=== PATIENT | female | born 1950 | race Caucasian/White ===

== ENCOUNTER 2020-07-20 08:37 | Outpatient (REF) | payer MEDICARE, SELFPAY ==
--- NOTE | ~2020-07-20 | MM_ITS ---
EXAMINATION: MM SCREENING DIGITAL BREAST TOMOSYNTHESIS, BILATERAL CLINICAL INFORMATION: Screening. Asymptomatic. The lifetime risk of breast cancer based on the Tyrer-Cuzick Model is 3%. COMPARISON: Mammography: 07/15/2019, 07/09/2018, 07/03/2017 TECHNIQUE: Digital breast tomosynthesis is performed in both the craniocaudal and mediolateral oblique views along with computer-aided detection (CAD). Synthesized 2D images are generated from the tomosynthesis. Additional left MLO view is provided. FINDINGS: The breasts are almost entirely fatty (ACR BI-RADS breast composition Category a). There are no significant masses, abnormal calcifications, or other abnormalities. Background stromal densities are stable. The axilla and skin contours are unremarkable. No significant changes. MM/MM tomosynthesis screening BI IMPRESSION: No mammographic evidence of malignancy. ASSESSMENT: BI-RADS 1: Negative RECOMMENDATION: Routine annual mammography screening. This patient's information was entered into a reminder system with a target due date for their next mammogram.
== END 2020-07-20 08:38 | disposition home or self-care (01) ==
LOC: HO.MAMMO 08:37
PROVIDERS: PCP Internal Medicine; Visit Provider Internal Medicine
DX: Z12.31 Encounter for screening mammogram for malignant neoplasm of breast (principal)
CPT/HCPCS: 77063; 77067

== ENCOUNTER 2020-12-29 08:48 | Outpatient (REF) | payer MEDICARE, SELFPAY ==
[2020-12-29 10:25] LABS: MANUAL DIFF FLAG NO
[2020-12-29 10:28] LABS: Basophils Absolute Auto 0.1 X10*3/uL (0.0-0.2); Eosinophils Absolute Auto 0.1 X10*3/uL (0.0-0.4); Eosinophils Percent Auto 1.6 % (0-4); Hematocrit 36.3 % (37-47); Hemoglobin 11.5 g/dl (12.0-16.0); Imm Gran Abs Auto 0.01 X10*3/uL (0.00-0.03); Imm Gran Pct Auto 0.2 % (0.0-0.4); Lymphocytes Absolute Auto 1.7 X10*3/uL (1.2-4.9); Lymphocytes Percent Auto 33.7 % (20-40); Mean Corpuscular HGB Conc 31.7 g/dl (31.0-35.0); Mean Corpuscular Hemoglobin 28.3 pg (27.0-33.0); Mean Corpuscular Volume 89.4 fL (80-98); Mean Platelet Volume 12.3 fL (9.4-12.3); Monocytes Absolute Auto 0.4 X10*3/uL (0.1-1.2); Monocytes Percent Auto 8.1 % (2-11); Neutrophils Absolute Auto 2.8 X10*3/uL (2.0-8.3); Neutrophils Percent Auto 55.4 % (45-73); Platelet Count 201 X10*3/uL (160-400); Red Blood Count 4.06 X10*6/uL (4.20-5.50); White Blood Count 5.1 X10*3/uL (4.8-10.8)
[2020-12-29 11:31] LABS: Alanine Aminotransferase 44 U/L (0-31); Albumin Level 3.9 g/dL (3.5-5.0); Alkaline Phosphatase 115 U/L (39-117); Anion Gap 10 (12-20); Aspartate Amino Transferase 33 U/L (5-31); Bilirubin Total 0.6 mg/dL (0.0-1.0); Blood Urea Nitrogen 15 mg/dL (9-16); Carbon Dioxide 25 mmol/L (22-29); Chloride 110 mmol/L (96-108); Cholesterol 116 mg/dL; Estimated Glomerular Filt Rate > 60; Glucose Fasting 87 mg/dL (60-99); HDL Cholesterol 29 mg/dL; LDL Cholesterol Calculated 71 mg/dl; Potassium 4.3 mmol/L (3.3-5.1); Sodium 141 mmol/L (135-145); Triglycerides 84 mg/dL
[2020-12-29 11:52] LABS: Vitamin B12 839 pg/mL (200-900)
[2020-12-29 11:54] LABS: Thyroid Stimulating Hormone 3.69 uIU/mL (0.32-4.0)
== END 2020-12-29 08:49 | disposition home or self-care (01) ==
LOC: HO.WFDLDS 08:48
PROVIDERS: PCP Internal Medicine; Visit Provider Internal Medicine
DX: Z00.00 Encounter for general adult medical examination without abnormal findings (principal); E03.9 Hypothyroidism, unspecified; E78.5 Hyperlipidemia, unspecified; E11.9 Type 2 diabetes mellitus without complications
CPT/HCPCS: 36415; 80053; 80061; 82607; 82746; 84443; 85025

== ENCOUNTER 2021-02-04 10:39 | Outpatient (REF) | payer MEDICARE, SELFPAY ==
[2021-02-04 11:52] LABS: Cholesterol 120 mg/dL; HDL Cholesterol 28 mg/dL; LDL Cholesterol Calculated 66 mg/dl; Triglycerides 134 mg/dL
[2021-02-04 12:07] LABS: Thyroid Stimulating Hormone 2.63 uIU/mL (0.32-4.0)
== END 2021-02-04 10:40 | disposition home or self-care (01) ==
LOC: HO.LAB 10:39
PROVIDERS: PCP Internal Medicine; Visit Provider Internal Medicine
DX: E03.9 Hypothyroidism, unspecified (principal); E11.9 Type 2 diabetes mellitus without complications
CPT/HCPCS: 36415; 80061; 84443

== ENCOUNTER 2021-05-17 10:24 | Outpatient (REF) | payer MEDICARE, SELFPAY ==
[2021-05-17 13:39] LABS: Binax Internal Control QC Valid; Binax Now Covid-19 Ag Negative (Negative)
== END 2021-05-17 10:25 | disposition home or self-care (01) ==
LOC: HO.LAB 10:24
PROVIDERS: Visit Provider Internal Medicine
DX: Z20.822 Contact with and (suspected) exposure to COVID-19 (principal)
CPT/HCPCS: C9803

== ENCOUNTER 2021-07-26 07:40 | Outpatient (REF) | payer MEDICARE, SELFPAY ==
--- NOTE | ~2021-07-26 | MM_ITS ---
EXAMINATION: MM SCREENING DIGITAL BREAST TOMOSYNTHESIS, BILATERAL CLINICAL INFORMATION: Screening. Asymptomatic. The lifetime risk of breast cancer based on the Tyrer-Cuzick Model is 1.7%. COMPARISON: Mammography: July 20, 2020 and studies dating back to May 04, 2014 TECHNIQUE: Digital breast tomosynthesis is performed in both the craniocaudal and mediolateral oblique views along with computer-aided detection (CAD). Synthesized 2D images are generated from the tomosynthesis. FINDINGS: There are scattered areas of fibroglandular density (ACR BI-RADS breast composition Category b). There are no significant masses, abnormal calcifications, or other abnormalities. MM/MM tomosynthesis screening BI IMPRESSION: There are no significant changes from prior study. ASSESSMENT: BI-RADS 1: Negative RECOMMENDATION: Routine annual mammography screening. This patient's information was entered into a reminder system with a target due date for their next mammogram.
== END 2021-07-26 07:41 | disposition home or self-care (01) ==
LOC: HO.MAMMO 07:40
PROVIDERS: Visit Provider Internal Medicine
DX: Z12.31 Encounter for screening mammogram for malignant neoplasm of breast (principal)
CPT/HCPCS: 77063; 77067

== ENCOUNTER 2022-01-23 08:34 | Outpatient (REF) | payer MEDICARE, SELFPAY ==
[2022-01-23 11:11] LABS: MANUAL DIFF FLAG NO
[2022-01-23 11:42] LABS: Basophils Absolute Auto 0.1 X10*3/uL (0.0-0.2); Basophils Percent Auto 0.8 % (0-2); Eosinophils Absolute Auto 0.1 X10*3/uL (0.0-0.4); Eosinophils Percent Auto 1.8 % (0-4); Hemoglobin 11.4 g/dl (12.0-16.0); Imm Gran Abs Auto 0.02 X10*3/uL (0.00-0.03); Imm Gran Pct Auto 0.3 % (0.0-0.4); Lymphocytes Absolute Auto 2.1 X10*3/uL (1.2-4.9); Lymphocytes Percent Auto 35.1 % (20-40); Mean Corpuscular HGB Conc 31.7 g/dl (31.0-35.0); Mean Corpuscular Hemoglobin 28.1 pg (27.0-33.0); Mean Corpuscular Volume 88.7 fL (80.0-98.0); Mean Platelet Volume 11.2 fL (9.4-12.3); Monocytes Absolute Auto 0.4 X10*3/uL (0.1-1.2); Monocytes Percent Auto 7.4 % (2-11); Neutrophils Absolute Auto 3.3 x10*3/uL (2.0-8.3); Neutrophils Percent Auto 54.6 % (45-73); Platelet Count 243 X10*3/uL (160-400); Red Blood Count 4.06 X10*6/uL (4.20-5.50); Red Cell Distribution Width 14.2 % (11.0-16.0)
[2022-01-23 11:56] LABS: Alanine Aminotransferase 41 U/L (0-31); Alkaline Phosphatase 129 U/L (39-117); Anion Gap 12 (12-20); Aspartate Amino Transferase 29 U/L (5-31); Bilirubin Total 0.5 mg/dL (0.0-1.0); Blood Urea Nitrogen 16 mg/dL (9-16); Calcium 8.1 mg/dL (8.4-10.2); Carbon Dioxide 24 mmol/L (22-29); Chloride 109 mmol/L (96-108); Cholesterol 135 mg/dL; Estimated Glomerular Filt Rate > 60; Glucose Fasting 86 mg/dL (60-99); HDL Cholesterol 37 mg/dL; LDL Cholesterol Calculated 83 mg/dl; Potassium 4.1 mmol/L (3.3-5.1); Sodium 141 mmol/L (135-145); Total Protein 6.2 g/dL (6.5-8.0); Triglycerides 77 mg/dL
[2022-01-23 12:03] LABS: Thyroid Stimulating Hormone 2.19 uIU/mL (0.32-4.0)
== END 2022-01-23 08:35 | disposition home or self-care (01) ==
LOC: HO.WFDLDS 08:34
PROVIDERS: Visit Provider Internal Medicine
DX: Z13.0 Encounter for screening for diseases of the blood and blood-forming organs and certain disorders involving the immune mechanism (principal); E03.9 Hypothyroidism, unspecified; E78.5 Hyperlipidemia, unspecified; I10 Essential (primary) hypertension
CPT/HCPCS: 36415; 80053; 80061; 84443; 85025

== ENCOUNTER 2022-07-13 09:27 | Outpatient (REF) | payer MEDICARE, SELFPAY ==
[2022-07-13 11:43] LABS: MANUAL DIFF FLAG NO
[2022-07-13 11:59] LABS: Basophils Absolute Auto 0.1 X10*3/uL (0.0-0.2); Basophils Percent Auto 0.8 % (0-2); Eosinophils Absolute Auto 0.1 X10*3/uL (0.0-0.4); Eosinophils Percent Auto 1.5 % (0-4); Hematocrit 37.5 % (37.0-47.0); Hemoglobin 11.8 g/dl (12.0-16.0); Imm Gran Abs Auto 0.02 X10*3/uL (0.00-0.03); Imm Gran Pct Auto 0.3 % (0.0-0.4); Lymphocytes Absolute Auto 1.9 X10*3/uL (1.2-4.9); Lymphocytes Percent Auto 31.1 % (20-40); Mean Corpuscular HGB Conc 31.5 g/dl (31.0-35.0); Mean Corpuscular Hemoglobin 28.5 pg (27.0-33.0); Mean Corpuscular Volume 90.6 fL (80.0-98.0); Mean Platelet Volume 12.3 fL (9.4-12.3); Monocytes Absolute Auto 0.4 X10*3/uL (0.1-1.2); Monocytes Percent Auto 6.9 % (2-11); Neutrophils Absolute Auto 3.6 x10*3/uL (2.0-8.3); Neutrophils Percent Auto 59.4 % (45-73); Platelet Count 192 X10*3/uL (160-400); Red Blood Count 4.14 X10*6/uL (4.20-5.50); Red Cell Distribution Width 13.6 % (11.0-16.0); White Blood Count 6.1 X10*3/uL (4.8-10.8)
[2022-07-13 16:05] LABS: Alanine Aminotransferase 38 U/L (0-31); Alkaline Phosphatase 107 U/L (39-117); Anion Gap 14 (12-20); Aspartate Amino Transferase 33 U/L (5-31); Bilirubin Total 0.8 mg/dL (0.0-1.0); Blood Urea Nitrogen 15 mg/dL (9-16); Calcium 8.1 mg/dL (8.4-10.2); Carbon Dioxide 22 mmol/L (22-29); Chloride 109 mmol/L (96-108); Cholesterol 156 mg/dL; Estimated Glomerular Filt Rate > 60; Glucose Fasting 83 mg/dL (60-99); HDL Cholesterol 31 mg/dL; LDL Cholesterol Calculated 96 mg/dl; Potassium 4.4 mmol/L (3.3-5.1); Sodium 141 mmol/L (135-145); Triglycerides 149 mg/dL
== END 2022-07-13 09:28 | disposition home or self-care (01) ==
LOC: HO.WFDLDS 09:27
PROVIDERS: Visit Provider Internal Medicine
DX: Z00.00 Encounter for general adult medical examination without abnormal findings (principal); Z13.0 Encounter for screening for diseases of the blood and blood-forming organs and certain disorders involving the immune mechanism
CPT/HCPCS: 36415; 80053; 80061; 84443; 85025

== ENCOUNTER 2022-07-31 08:14 | Outpatient (REF) | payer MEDICARE, SELFPAY ==
--- NOTE | ~2022-07-31 | MM_ITS ---
EXAMINATION: MM SCREENING DIGITAL BREAST TOMOSYNTHESIS, BILATERAL CLINICAL INFORMATION: Screening. Asymptomatic. The lifetime risk of breast cancer based on the Tyrer-Cuzick Model is 2%. COMPARISON: Mammography: 07/26/2021, 07/20/2020, 07/15/2019 TECHNIQUE: Digital breast tomosynthesis is performed in both the craniocaudal and mediolateral oblique views along with computer-aided detection (CAD). Synthesized 2D images are generated from the tomosynthesis. FINDINGS: There are scattered areas of fibroglandular density (ACR BI-RADS breast composition Category b). Breast tissue composition borders on predominantly fatty. Background stromal and fibroglandular densities are stable. No architectural abnormality or developing density. There are no significant masses, abnormal calcifications, or other abnormalities. MM/MM tomosynthesis screening BI IMPRESSION: No mammographic evidence of malignancy. ASSESSMENT: BI-RADS 1: Negative RECOMMENDATION: Routine annual mammography screening. This patient's information was entered into a reminder system with a target due date for their next mammogram.
== END 2022-07-31 08:15 | disposition home or self-care (01) ==
LOC: HO.MAMMO 08:14
PROVIDERS: Visit Provider Internal Medicine
DX: Z12.31 Encounter for screening mammogram for malignant neoplasm of breast (principal)
CPT/HCPCS: 77063; 77067

== ENCOUNTER 2022-12-21 12:36 | Outpatient (AMB) | payer MEDICARE, SELFPAY ==
--- NOTE | 2022-12-21 13:03 | MHC.OFFVIS ---
Intake Intake Visit Reasons: Frequency of micturition Intake Note: New Patient presents for initial visit urinary frequency Urology Medications: none Blood Thinner: none PVR: Sole Dyer Required: No Accompanied by: Self / Same As Patient Allergies No Known Allergies [No Known Allergies*] Allergy (Verified 12/21/22 13:52) Medication List - Last Reconciled 12/21/22 by MONICA King atorvastatin 20 mg PO DAILY cyanocobalamin (vitamin B-12) 1,000 mcg PO DAILY estradiol 0.01%(0.1mg/gram) vaginally 3 times a week; pea sized amount to urethra 3 times a week 30 days ferrous sulfate (Feosol) 325 mg PO DAILY mv,Ca,min-folic acid-vit K1 400-20 mcg (One-A-Day Women's 50 Plus) 1 tab PO DAILY HPI HPI Comments History of Present Illness Details Erum is a very pleasant 72-year-old female patient of Dr. Reddy. She presents to the office today as a new patient for urinary urgency. She discusses over the last couple of months she has undergone multiple procedures for root canals as well as teeth pulling. She also discusses her recent urine fraction. However, during this time she started experiencing on sensed urinary incontinence as well as paresthesia to her vaginal area. She discusses following up with her PCP at which time recommendations were made for Urology referral. She reports having finished antibiotic therapy for question of a urinary tract infection and feels symptoms have since improved. So much so that she was tempted to cancel today's appointment. However, she does still report to feeling off . She reports she continues with a tingling sensation to her urethra/vaginal area. She also reports feeling a sense of urgency with urination however she currently denies urinary frequency, incontinence, nocturia, hematuria, dysuria, foul smelling urine, changes to urinary stream, flank pain, fever, and or chills. In office urinalysis results reviewed with the patient today. PVR 36 mL. Patient reports many years ago having had a bladder suspension. She also reports to have been on Detrol many years ago however stopped after prison and did not feel like she needed this medication anymore. She otherwise offers no issues or concerns at this time. [facility] Medical History Hyperlipidemia Surgical History History of bladder surgery History of colonoscopy History of rectal surgery Family History Father Lung cancer Mother Dementia Social History Housing: House Alcohol intake: current Alcohol intake frequency: holidays/special occasions only Patient Tobacco Use Status: Never used Tobacco e-Cigarette/Vaping Use: Never Used Second Hand Smoke Exposure: No service: No Current occupational status: retired Current occupational exposures/hazards: No Cognitive needs: No Hearing needs: Yes Vision needs: Yes Review of Systems Const Reports no additional complaints Eyes Reports no additional complaints ENT Reports no additional complaints Card Reports as per HPI Resp Reports no additional complaints GI Reports no additional complaints Reports as per HPI Musc Reports no additional complaints Neuro Reports no additional complaints Psych Reports no additional complaints Endo Reports no additional complaints Ede/Lymph Reports no additional complaints Aller/Immun Reports no additional complaints Physical Exam Const General: cooperative, healthy appearing, comfortable, no acute distress, well developed, alert and awake Orientation/consciousness: patient oriented x3 Limitations: no limitations HEENT Head: Yes normal to inspection, Yes normocephalic and Yes atraumatic Ears: hearing grossly normal bilaterally Eyes General: appearance normal, both eyes and all related structures Neck Neck: Yes normal visual inspection and Yes trachea midline Chest Chest palpation & inspection: normal inspection of the chest Resp Effort & Inspection: normal respiratory effort and able to speak in complete sentences Cardio Rate: regular rate GI Inspection: Yes normal to inspection General: Yes no CVA tenderness Back/Spine/Pelvis Back: no CVA tenderness Skin General skin exam: no rashes or lesions noted Neuro General: patient oriented x3 Extrem General: Yes normal to inspection Psych Appearance: grossly normal and well kempt Mental Status: mental status grossly normal Speech and movement: Normal speech and movement present and Clear speech present Affect: normal affect Attitude: cooperative Thought process: Normal thought process present Thought content: Normal thought content present Insight: Good insight present (Psych) Judgement: Good judgement present (Psych) Office Procedures Post Void Residual Post Residual Void Post Void Residual (PVR): [id number] Void Residual by ultrasound Results AMB Urinalysis, Automated UA Leukoctes 0 Courtney/uL Last Edit by Pam Giron on 12/21/22 13:20 UA Nitrite Last Edit by Brittmore Groupallyson on 12/21/22 13:20 UA Urobilinogen 0.2 mg/dL Last Edit by Radhae Bree on 12/21/22 13:20 UA Protein 0 mg/dL Last Edit by Radhae Bree on 12/21/22 13:20 UA pH 6.0 Last Edit by Avot Mediayce Bree on 12/21/22 13:20 UA Blood 0 Steve/uL Last Edit by City[employer]son on 12/21/22 13:20 UA Specific [place] 1.015 Last Edit by Brittmore [employer] on 12/21/22 13:20 UA Ketone Negative Last Edit by CityH[employer]essa Flator[employer]son on 12/21/22 13:20 UA Bilirubin 0 mg/dL Last Edit by Avot [employer]iayasmin Flatoraallyson on 12/21/22 13:20 UA Glucose 0 mg/dL Last Edit by [employer] Flatora[employer]son on 12/21/22 13:20 Results Reviewed Results Reviewed: Laboratory Last Values Urine pH (Auto) 6.0 12/21/22 13:05 Specific [place] (Auto) 1.015 12/21/22 13:05 Urine Protein (Auto) 0 mg/dL 12/21/22 13:05 Glucose (UA)(Auto) 0 mg/dL 12/21/22 13:05 Urine Ketones (Auto) Negative 12/21/22 13:05 Urine Blood (Auto) 0 Steve/uL 12/21/22 13:05 Urine Bilirubin (Auto) 0 mg/dL 12/21/22 13:05 Urine Urobilinogen (Auto) 0.2 mg/dL 12/21/22 13:05 Leukocyte Esterase (Auto) 0 Courtney/uL 12/21/22 13:05 Assessment & Plan Assessment & Plan (1) Urinary urgency: Code(s): R39.15 - Urgency of urination Plan In office urinalysis results reviewed with the patient today; as noted above. Discussed obtaining retroperitoneal ultrasound for further assessment evaluation. Discussed bladder triggers/irritants. Discussed toilet training and pelvic floor exercises/therapy at length. Discussed, educated, and encouraged on the importance of drinking plenty of fluid daily. Discussed near future in office cystoscopy if symptoms persist and/or worsen. Start Estrace cream as discussed and prescribed. Follow-up in 6-8 weeks with imaging to be completed prior; or sooner with any issues, concerns, and or questions. Orders: Orders US retroperitoneal comp Today R39.15 - Urgency of urination Urine Culture Today R39.15 - Urgency of urination AMB Urinalysis Automated Today Z13.9 - Encounter for screening, unspecified AMB Post Void Residual by ultrasound Today Z13.9 - Encounter for screening, unspecified Medications: New estradiol 0.01%(0.1mg/gram) vaginally 3 times a week; pea sized amount to urethra 3 times a week 30 days 42.5 grams 3RF Patient Instructions: The patient had an opportunity to ask questions regarding the treatment plan. All questions were answered. Physical exam, labs, and imaging were discussed and reviewed in detail. As well as risks, benefits, and discussion of treatment choices. No major barriers to understanding were identified. The patient expressed understanding and agreement with the above treatment plan. The patient was made aware they should contact our office by phone for worsening of their current condition, the appearance of new symptoms, or with any questions or concerns. Compliance is encouraged with any medications and follow up testing that is ordered. It is a privilege to be allowed the opportunity to participate in? your urological care.? Again, if you have any questions or concerns If you have any questions or concerns please do not hesitate to contact me. The office is [phone]. This note is constructed using voice recognition software. While every effort has been made to ensure accuracy solar project coordination specialist errors may have been included. Yours sincerely, MONICA King Coding Level of Care Code New Pt Level 4 (40285) Diagnoses Urinary urgency R39.15 CPT Codes Post Residual Void - PVR CPT Code: 06027-Sfog Void Residual by ultrasound ([id number])
== END 2022-12-21 13:45 | disposition home or self-care (01) ==
PROVIDERS: PCP Internal Medicine; Visit Provider Nurse Practitioner Family
DX: Z13.9 Encounter for screening, unspecified (principal); R39.15 Urgency of urination
CPT/HCPCS: 99204

== ENCOUNTER 2022-12-21 12:36 | Outpatient (REF) | payer MEDICARE, SELFPAY | END 2022-12-21 12:37 | disposition home or self-care (01) | LOC: HO.LNP 12:36 | PROVIDERS: PCP Internal Medicine; Visit Provider Nurse Practitioner Family | DX: R39.15 Urgency of urination (principal) | CPT/HCPCS: 51798; 81003; 87086; 99202 ==

== ENCOUNTER 2023-01-10 08:33 | Outpatient (REF) | payer MEDICARE, SELFPAY ==
[2023-01-10 12:31] LABS: Cholesterol 112 mg/dL (<200); HDL Cholesterol 28 mg/dL (>40); Iron 65 mcg/dL (30-160); LDL Cholesterol Calculated 54 mg/dL (<100); Percent Iron Saturation 26 % (15-50); Total Iron Binding Capacity 253 mcg/dL (228-428); Triglycerides 151 mg/dL (<150); Unsaturated Iron Binding 188 ug/dL
== END 2023-01-10 08:34 | disposition home or self-care (01) ==
LOC: HO.WFDLDS 08:33
PROVIDERS: Visit Provider Internal Medicine
DX: E78.5 Hyperlipidemia, unspecified (principal); E61.1 Iron deficiency
CPT/HCPCS: 36415; 80061; 83540

== ENCOUNTER 2023-01-12 10:18 | Outpatient (REF) | payer MEDICARE, SELFPAY ==
--- NOTE | ~2023-01-12 | US_ITS ---
EXAMINATION: US RETROPERITONEAL COMPLETE (RENAL) CLINICAL INFORMATION: Urgency of urination. COMPARISON: None available. TECHNIQUE: Real-time imaging of the kidneys and bladder. FINDINGS: RIGHT KIDNEY: 6.0 x 3.0 x 4.1 cm (SAG x AP x TRV). The kidney is normal in size, contour, and echogenicity. Renal cortical thickness is normal. No calculi or focal parenchymal lesions. There is pelviectasis, without priscila hydronephrosis. LEFT KIDNEY: 9.6 x 4.0 x 4.5 cm (SAG x AP x TRV). The kidney is normal in size, contour, and echogenicity. Renal cortical thickness is normal. No calculi or focal parenchymal lesions. No hydronephrosis. BLADDER: Well distended and normal. Bilateral ureteral jets are demonstrated. Prevoid bladder volume is 248 mL. Postvoid bladder volume is 48 mL. US/US retroperitoneal comp IMPRESSION: Unremarkable examination.
== END 2023-01-12 10:19 | disposition home or self-care (01) ==
LOC: HO.US 10:18
PROVIDERS: PCP Internal Medicine; Visit Provider Nurse Practitioner Family
DX: R39.15 Urgency of urination (principal)
CPT/HCPCS: 76770

== ENCOUNTER 2023-01-15 09:11 | Outpatient (AMB) | payer MEDICARE, SELFPAY ==
[2023-01-15 09:16] VITALS: BP 122/54; PULSE 55; BMI 24.5
--- NOTE | 2023-01-15 09:16 | MHC.PC.OV ---
Vital Signs 01/15/23 09:16 Height 5 ft 2.5 in Weight 136 lb 6 oz BMI 24.5 BP 122/54 L Blood Pressure Location Lt brachial Position Sitting Pulse 55 Pulse Source Pulse Oximeter Oxygen Delivery Method Room Air Intake Visit Reasons: 6 month f/u Allergies No Known Allergies [No Known Allergies*] Allergy (Verified 01/15/23 09:17) Medication List - Last Reconciled 01/15/23 by Jose Rafael Reddy MD atorvastatin 20 mg PO DAILY cyanocobalamin (vitamin B-12) 1,000 mcg PO DAILY estradiol 0.01%(0.1mg/gram) vaginally 3 times a week; pea sized amount to urethra 3 times a week 30 days ferrous sulfate (Feosol) 325 mg PO DAILY mv,Ca,min-folic acid-vit K1 400-20 mcg (One-A-Day Women's 50 Plus) 1 tab PO DAILY Tobacco use date assessed: 07/25/22 Fall risk assessment: No Falls in past year Last assessed Fall Risk: 01/15/23 Dental Screening Dental Screen Date: 01/15/23 Did you have a dental visit in the last 12 months?: Yes Did you have a dental problem in the last 6 months where you did not have access to dental care?: No Was dental information given to patient?: Patient has dentist HPI 6 month f/u HPI Details hyperlipidemia on rx; doing well PFSH Medical History Hyperlipidemia Surgical History History of rectal surgery History of bladder surgery History of colonoscopy Family History Father Lung cancer Mother Dementia Social History Housing: House Alcohol intake: current Alcohol intake frequency: holidays/special occasions only Patient Tobacco Use Status: Never used Tobacco e-Cigarette/Vaping Use: Never Used Second Hand Smoke Exposure: No service: No Current occupational status: retired Current occupational exposures/hazards: No Cognitive needs: No Hearing needs: Yes Vision needs: Yes Questionnaire PHQ-9 Over the last 2 weeks, how often have you been bothered by any of the following problems? 1. Little interest or pleasure in doing things: not at all 2. Feeling down, depressed, or hopeless: not at all 3. Trouble falling or staying asleep, or sleeping too much: not at all 4. Feeling tired or having little energy: not at all 5. Poor appetite or overeating: not at all 6. Feeling bad about yourself - or that you are a failure or have let yourself or your family down: not at all 7. Trouble concentrating on things, such as reading the newspaper or watching television: not at all 8. Moving or speaking so slowly that other people could have noticed. Or the opposite - being so fidgety or restless that you have been moving around a lot more than usual: not at all 9. Thoughts that you would be better off or of hurting yourself in some way: not at all Total score: 0 Depression Screening Interpretation: Negative 09236 - PHQ-9 Billing: Yes Source: Developed by Drs. Dagoberto Garcia, Lexus Barros, Jaoquin Eugene and colleagues, with an educational gavin from [employer] Thrive Questionnaire Date Thrive assessed: 07/25/22 AUDIT C Alcohol Use Questionnaire (AUDIT-C) 1. How often do you have a drink containing alcohol?: Monthly or less 2. How many drinks containing alcohol do you have on a typical day when you are drinking?: 1 or 2 3. How often do you have six or more drinks on one occasion?: Never Total Score: 1 Score Reviewed/Action Taken: Yes RICHELLE-7 AMB Questionnaire RICHELLE-7 Date RICHELLE - 7 assessed: 07/25/22 Source: Developed by Drs. Dagoberto Garcia, Joaquin Cheng and colleagues, with an educational gavin from [employer] ([employer] Review of Systems Const Denies chills, Denies headache(s) and Denies weight loss ENT Denies headache(s) Card Denies chest pain, Denies syncope, Denies irregular heart rhythm and Denies dyspnea Resp Denies chest congestion, Denies cough and Denies dyspnea GI Denies abdominal pain, Denies change in stool character, Denies nausea and Denies vomiting Musc Denies deformity and Denies joint swelling Neuro Denies syncope and Denies headache(s) Physical exam (Primary Care) Vital Signs: Last Vital Signs Pulse 55 01/15/23 09:16 BP 122/54 L 01/15/23 09:16 Oxygen Delivery Method Room Air 01/15/23 09:16 BMI result Body Mass Index 24.5 Tobacco/Smoking Status: Tobacco use Status Tobacco use date assessed 07/25/22 01/15/23 09:17 Patient Tobacco Use Status Never used Tobacco 01/15/23 09:17 e-Cigarette/Vaping Use Never Used 01/15/23 09:17 PHQ-9: PHQ-9 Score PHQ-9: Total score 0 01/15/23 09:17 Depression Screening Interpretation: Negative Thrive Assessment: Date of Thrive Assessment Date Thrive assessed 07/25/22 01/15/23 09:17 Const General: cooperative, comfortable, no acute distress and alert Neck Neck: Yes no lymphadenopathy Thyroid: Thyroid normal Resp Effort & Inspection: normal respiratory effort Auscultation: clear to auscultation bilaterally Percussion: percussion normal Cardio Jugular venous distension: no JVD Palpation: normal PMI Rate: regular rate Rhythm: regular rhythm Heart sounds: S1 normal heart sound present and S2 normal heart sound present GI Inspection: Yes normal to inspection Palpation (GI): No hepatosplenomegaly present Skin General skin exam: no rashes or lesions noted Extrem General: Yes no clubbing, cyanosis or edema Assessment and Plan Assessment & Plan (1) Hyperlipidemia: Code(s): E78.5 - Hyperlipidemia, unspecified Plan: stable; same rx Orders: Orders Lipid Panel Today E78.5 - Hyperlipidemia, unspecified Thyroid Stimulating Hormone Today E03.9 - Hypothyroidism, unspecified Complete Blood Count Auto Diff Today D64.9 - Anemia, unspecified Comprehensive Berry. Panel Fast Today N28.9 - Disorder of kidney and ureter, unspecified Coding Level of Care Code Est Pt Level 3 (37519) Diagnoses Hyperlipidemia E78.5
== END 2023-01-15 09:49 | disposition home or self-care (01) ==
PROVIDERS: PCP Internal Medicine; Visit Provider Internal Medicine
DX: E78.5 Hyperlipidemia, unspecified (principal)
CPT/HCPCS: 99213

== ENCOUNTER 2023-01-23 11:11 | Outpatient (AMB) | payer MEDICARE, SELFPAY ==
--- NOTE | 2023-01-23 11:13 | A.OFFVIS_ITS ---
Intake Intake Visit Reasons: 4w/US(SET) Intake Note: Patient presents for follow up visit urinary frequency/ultrasound (imaging 01/12/23) Urology Medications: Estrace Cream Blood Thinner: none PVR: 64ml's Supervisory Clerk Required: No Accompanied by: Self / Same As Patient Allergies No Known Allergies [No Known Allergies*] Allergy (Verified 01/23/23 20:23) Medication List - Last Reconciled 01/23/23 by DAVID King-ROLAND atorvastatin 20 mg PO DAILY cyanocobalamin (vitamin B-12) 1,000 mcg PO DAILY estradiol 0.01%(0.1mg/gram) vaginally 3 times a week; pea sized amount to urethra 3 times a week 30 days ferrous sulfate (Feosol) 325 mg PO DAILY mv,Ca,min-folic acid-vit K1 400-20 mcg (One-A-Day Women's 50 Plus) 1 tab PO DAILY HPI HPI Comments History of Present Illness Details Erum is a very pleasant 72-year-old female patient of Dr. Reddy. She presents to the office today for follow-up. Of note, patient was seen approximately 1 month ago as a new patient for urinary urgency at which time a retroperitoneal ultrasound was ordered for further assessment evaluation in the patient was started on Estrace cream. Recent retroperitoneal ultrasound results reviewed with the patient today. Right kidney with no calcul and or lesions noted. There is pelviectasis, without priscila hydronephrosis. Left kidney with no calculi, lesions, and or hydronephrosis noted. The bladder is well distended and normal. Bilateral ureteral jets are demonstrated. Pre void bladder volume is approximately 250 mL. Postvoid bladder volume is approximately 50 mL. When asked she reports significant improvement in urinary symptoms since her last office visit. She reports compliance with Estrace cream 3 times per week. She does report at times feeling urinary symptoms are off however states they are much more improved since 1 month ago. In office urinalysis results reviewed with the patient today. PVR 64 mLs. Discussed possible low-dose alpha-lai to assist with incomplete bladder emptying versus surveillance monitoring. She currently denies urinary frequency, incontinence, nocturia, hematuria, dysuria, foul smelling urine, changes to urinary stream, flank pain, fever, and or chills. In office urinalysis results reviewed with the patient today. Patient reports many years ago having had a bladder suspension. She otherwise offers no issues or concerns at this time. PFSH Medical History Hyperlipidemia Surgical History History of rectal surgery History of bladder surgery History of colonoscopy Family History Father Lung cancer Mother Dementia Social History Housing: House Alcohol intake: current Alcohol intake frequency: holidays/special occasions only Patient Tobacco Use Status: Never used Tobacco e-Cigarette/Vaping Use: Never Used Second Hand Smoke Exposure: No service: No Current occupational status: retired Current occupational exposures/hazards: No Cognitive needs: No Hearing needs: Yes Vision needs: Yes Review of Systems Const Reports no additional complaints Eyes Reports no additional complaints ENT Reports no additional complaints Card Reports as per HPI Resp Reports no additional complaints GI Reports no additional complaints Reports as per HPI Musc Reports no additional complaints Neuro Reports no additional complaints Psych Reports no additional complaints Endo Reports no additional complaints Ede/Lymph Reports no additional complaints Aller/Immun Reports no additional complaints Office Procedures Post Void Residual Post Residual Void Post Void Residual (PVR): 64 [id number] Void Residual by ultrasound Results AMB Urinalysis, Automated UA Leukoctes 0 Courtney/uL Last Edit by NavjotBeyond Verbalvanessa Giron on 01/23/23 11:35 UA Nitrite Last Edit by Pam Giron on 01/23/23 11:35 UA Urobilinogen 0.2 mg/dL Last Edit by Pam Giron on 01/23/23 11:35 UA Protein 0 mg/dL Last Edit by 2smsvanessa Giron on 01/23/23 11:35 UA pH 6.0 Last Edit by Pam Giron on 01/23/23 11:35 UA Blood 0 Steve/uL Last Edit by Pam Giron on 01/23/23 11:35 UA Specific [place] 1.015 Last Edit by Navjot[employer] Verbalvanessa Girno on 01/23/23 11:35 UA Ketone Negative Last Edit by Pam Giron on 01/23/23 11:35 UA Bilirubin 0 mg/dL Last Edit by Pam Giron on 01/23/23 11:35 UA Glucose 0 mg/dL Last Edit by Pam Giron on 01/23/23 11:35 Results Reviewed Results Reviewed: Laboratory Last Values Urine pH (Auto) 6.0 01/23/23 11:14 Specific [place] (Auto) 1.015 01/23/23 11:14 Urine Protein (Auto) 0 mg/dL 01/23/23 11:14 Glucose (UA)(Auto) 0 mg/dL 01/23/23 11:14 Urine Ketones (Auto) Negative 01/23/23 11:14 Urine Blood (Auto) 0 Steve/uL 01/23/23 11:14 Urine Bilirubin (Auto) 0 mg/dL 01/23/23 11:14 Urine Urobilinogen (Auto) 0.2 mg/dL 01/23/23 11:14 Leukocyte Esterase (Auto) 0 Courtney/uL 01/23/23 11:14 Date of Service: 01/12/23 EXAMINATION: US RETROPERITONEAL COMPLETE (RENAL) FINDINGS: RIGHT KIDNEY: 6.0 x 3.0 x 4.1 cm (SAG x AP x TRV). The kidney is normal in size, contour, and echogenicity. Renal cortical thickness is normal. No calculi or focal parenchymal lesions. There is pelviectasis, without priscila hydronephrosis. LEFT KIDNEY: 9.6 x 4.0 x 4.5 cm (SAG x AP x TRV). The kidney is normal in size, contour, and echogenicity. Renal cortical thickness is normal. No calculi or focal parenchymal lesions. No hydronephrosis. BLADDER: Well distended and normal. Bilateral ureteral jets are demonstrated. Prevoid bladder volume is 248 mL. Postvoid bladder volume is 48 mL. IMPRESSION: Unremarkable examination. Assessment & Plan Assessment & Plan (1) Urinary urgency: Code(s): R39.15 - Urgency of urination Plan In office urinalysis results reviewed with the patient today; as noted above. Recent retroperitoneal ultrasound results reviewed with the patient today; reassurance provided. Continue Estrace cream as discussed and prescribed. Discussed surveillance monitoring verses low-dose alpha-lai for incomplete bladder emptying. Patient reports significant improvement in urinary symptoms compared to just months ago. PVR 64ml's. Follow-up in 6 months with labs to be completed prior; or sooner with any issues, concerns, and or questions. Orders: Orders AMB Urinalysis Automated Today Z13.9 - Encounter for screening, unspecified AMB Post Void Residual by ultrasound Today R39.15 - Urgency of urination Creatinine Today R39.15 - Urgency of urination Blood Urea Nitrogen Today R39.15 - Urgency of urination Patient Instructions: The patient had an opportunity to ask questions regarding the treatment plan. All questions were answered. Physical exam, labs, and imaging were discussed and reviewed in detail. As well as risks, benefits, and discussion of treatment choices. No major barriers to understanding were identified. The patient expressed understanding and agreement with the above treatment plan. The patient was made aware they should contact our office by phone for worsening of their current condition, the appearance of new symptoms, or with any questions or concerns. Compliance is encouraged with any medications and follow up testing that is ordered. It is a privilege to be allowed the opportunity to participate in? your urological care.? Again, if you have any questions or concerns If you have any questions or concerns please do not hesitate to contact me. The office is [phone]. This note is constructed using voice recognition software. While every effort has been made to ensure accuracy material checker errors may have been included. Yours sincerely, MONICA King Coding Level of Care Code Est Pt Level 3 (57255) Diagnoses Urinary urgency R39.15 CPT Codes Post Residual Void - PVR CPT Code: 69876-Soey Void Residual by ultrasound ([id number])
== END 2023-01-23 12:16 | disposition home or self-care (01) ==
PROVIDERS: PCP Internal Medicine; Visit Provider Nurse Practitioner Family
DX: R39.15 Urgency of urination (principal)
CPT/HCPCS: 99213

== ENCOUNTER → 2023-01-23 11:11 | Outpatient (BNVA) | payer MEDICARE, SELFPAY | PROVIDERS: PCP Internal Medicine; Visit Provider Nurse Practitioner Family | DX: R39.15 Urgency of urination (principal); Z79.899 Other long term (current) drug therapy | CPT/HCPCS: 51798; 81003; 99212 ==

== ENCOUNTER 2023-07-11 08:58 | Outpatient (REF) | payer MEDICARE, SELFPAY ==
[2023-07-11 11:19] LABS: MANUAL DIFF FLAG NO
[2023-07-11 11:27] LABS: Basophils Absolute Auto 0.1 X10*3/uL (0.0-0.2); Basophils Percent Auto 0.9 % (0-2); Eosinophils Absolute Auto 0.1 X10*3/uL (0.0-0.4); Eosinophils Percent Auto 1.7 % (0-4); Hematocrit 35.7 % (37.0-47.0); Hemoglobin 11.2 g/dl (12.0-16.0); Imm Gran Abs Auto 0.01 X10*3/uL (0.00-0.03); Imm Gran Pct Auto 0.2 % (0.0-0.4); Lymphocytes Absolute Auto 1.6 X10*3/uL (1.2-4.9); Lymphocytes Percent Auto 30.7 % (20-40); Mean Corpuscular HGB Conc 31.4 g/dl (31.0-35.0); Mean Corpuscular Hemoglobin 28.4 pg (27.0-33.0); Mean Corpuscular Volume 90.4 fL (80.0-98.0); Mean Platelet Volume 11.9 fL (9.4-12.3); Monocytes Absolute Auto 0.4 X10*3/uL (0.1-1.2); Monocytes Percent Auto 7.3 % (2-11); Neutrophils Absolute Auto 3.1 x10*3/uL (2.0-8.3); Neutrophils Percent Auto 59.2 % (45-73); Platelet Count 219 X10*3/uL (160-400); Red Blood Count 3.95 X10*6/uL (4.20-5.50); Red Cell Distribution Width 13.9 % (11.0-16.0); White Blood Count 5.3 X10*3/uL (4.8-10.8)
[2023-07-11 14:05] LABS: Alanine Aminotransferase 40 U/L (0-31); Albumin Level 3.8 g/dL (3.5-5.0); Alkaline Phosphatase 111 U/L (39-117); Anion Gap 7 (12-20); Aspartate Amino Transferase 30 U/L (5-31); Bilirubin Total 0.5 mg/dL (0.0-1.0); Blood Urea Nitrogen 12 mg/dL (9-16); Calcium 8.1 mg/dL (8.4-10.2); Carbon Dioxide 26 mmol/L (22-29); Chloride 113 mmol/L (96-108); Cholesterol 107 mg/dL (<200); Estimated Glomerular Filt Rate > 60; Glucose Fasting 86 mg/dL (60-99); HDL Cholesterol 26 mg/dL (>40); LDL Cholesterol Calculated 64 mg/dL (<100); Potassium 4.1 mmol/L (3.3-5.1); Sodium 142 mmol/L (135-145); Thyroid Stimulating Hormone 2.97 uIU/mL (0.32-4.0); Total Protein 6.1 g/dL (6.5-8.0); Triglycerides 89 mg/dL (<150)
== END 2023-07-11 08:59 | disposition home or self-care (01) ==
LOC: HO.WFDLDS 08:58
PROVIDERS: Visit Provider Internal Medicine
DX: E78.5 Hyperlipidemia, unspecified (principal); E03.9 Hypothyroidism, unspecified; N28.9 Disorder of kidney and ureter, unspecified; D64.9 Anemia, unspecified
CPT/HCPCS: 36415; 80053; 80061; 84443; 85025

== ENCOUNTER 2023-07-16 08:08 | Outpatient (AMB) | payer MEDICARE, SELFPAY ==
[2023-07-16 08:34] VITALS: BP 102/64; PULSE 53; O2SAT 97; BMI 25.9
--- NOTE | 2023-07-16 08:34 | A.OFFPC_ITS ---
Vital Signs 07/16/23 08:34 Height 5 ft 2.5 in Weight 144 lb BMI 25.9 BP 102/64 Blood Pressure Location Lt brachial Position Sitting Pulse 53 Pulse Source Pulse Oximeter Pulse Oximetry (%) 97 Oxygen Delivery Method Room Air Intake Visit Reasons: 6mth f/u Care Support Representative Required: No Senior Financial Analyst: Present Accompanied by: Spouse Allergies No Known Allergies [No Known Allergies*] Allergy (Verified 07/16/23 08:34) Medication List - Last Reconciled 07/16/23 by Jose Rafael Reddy MD atorvastatin 20 mg PO DAILY cyanocobalamin (vitamin B-12) 1,000 mcg PO DAILY estradiol 0.01%(0.1mg/gram) vaginally 3 times a week; pea sized amount to urethra 3 times a week 30 days ferrous sulfate (Feosol) 325 mg PO DAILY mv,Ca,min-folic acid-vit K1 400-20 mcg (One-A-Day Women's 50 Plus) 1 tab PO DAILY Tobacco use date assessed: 07/16/23 Fall risk assessment: No Falls in past year Last assessed Fall Risk: 07/16/23 Dental Screening Dental Screen Date: 07/16/23 Did you have a dental visit in the last 12 months?: Yes Did you have a dental problem in the last 6 months where you did not have access to dental care?: No Was dental information given to patient?: Patient has dentist HPI 6mth f/u HPI Details hyperlip on rx; doing well and compliant [facility] Medical History Hyperlipidemia Surgical History History of rectal surgery History of bladder surgery History of colonoscopy Family History Father Lung cancer Mother Dementia Social History Housing: House Alcohol intake: current Alcohol intake frequency: holidays/special occasions only Patient Tobacco Use Status: Never used Tobacco e-Cigarette/Vaping Use: Never Used Second Hand Smoke Exposure: No service: No Current occupational status: retired Current occupational exposures/hazards: No Cognitive needs: No Hearing needs: Yes Vision needs: Yes Questionnaire PHQ-9 Over the last 2 weeks, how often have you been bothered by any of the following problems? 1. Little interest or pleasure in doing things: not at all 2. Feeling down, depressed, or hopeless: not at all 3. Trouble falling or staying asleep, or sleeping too much: not at all 4. Feeling tired or having little energy: not at all 5. Poor appetite or overeating: not at all 6. Feeling bad about yourself - or that you are a failure or have let yourself or your family down: not at all 7. Trouble concentrating on things, such as reading the newspaper or watching television: not at all 8. Moving or speaking so slowly that other people could have noticed. Or the opposite - being so fidgety or restless that you have been moving around a lot more than usual: not at all 9. Thoughts that you would be better off or of hurting yourself in some way: not at all Total score: 0 Depression Screening Interpretation: Negative Depression Screening Done: Yes 38087 - PHQ-9 Billing: Yes Source: Developed by Drs. Dagoberto Garcia, Lexus Barros, Joaquin Eugene and colleagues, with an educational gavin from [employer]. Thrive Questionnaire Date Thrive assessed: 07/16/23 I am a: Patient What is your living situation today?: I have a steady place to live Within the past 12 months, did the food you bought not last and you didn't have the money to get more?: Never true Within the past 12 months, did you worry whether your food would run out before you got money to buy more?: Never true Do you have trouble paying for medicines?: No Do you have trouble getting transportation to medical appointments?: No Do you have trouble paying your heating and electricity bill?: No Do you have trouble taking care of your child, family member or friend?: No Do you have trouble with day-to-day activities such as bathing, preparing meals, shopping, managing finances, etc.?: No Are you currently unemployed and looking for a job?: No Are you interested in more education?: No Please select the resources that you would like help with: None THRIVE Score: 0 AUDIT C Alcohol Use Questionnaire (AUDIT-C) 1. How often do you have a drink containing alcohol?: Monthly or less 2. How many drinks containing alcohol do you have on a typical day when you are drinking?: 1 or 2 3. How often do you have six or more drinks on one occasion?: Never Total Score: 1 Score Reviewed/Action Taken: Yes RICHELLE-7 AMB Questionnaire RICHELLE-7 Date RICHELLE - 7 assessed: 07/16/23 Feeling nervous, anxious, or on edge: 0 = Not at all Not being able to stop or control worryin = Not at all Worrying too much about different things: 0 = Not at all Trouble relaxin = Not at all Being so restless that it is hard to sit still: 0 = Not at all Becoming easily annoyed or irritable: 0 = Not at all Feeling afraid as if something awful might happen: 0 = Not at all Total RICHELLE-7 score (0-4 normal; 5-9 mild; 10-14 moderate; 15-21 severe): 0 Source: Developed by Drs. Dagoberto Garcia, Lexus Barros, Joaquin Eugene and colleagues, with an educational gavin from [employer]. RICHELLE-7 Assessment Billing RICHELLE-7 Assessment Tool: RICHELLE-7 Assessment 66571 Review of Systems Const Denies chills, Denies headache(s) and Denies weight loss ENT Denies headache(s) Card Denies chest pain, Denies syncope, Denies irregular heart rhythm and Denies dyspnea Resp Denies chest congestion, Denies cough and Denies dyspnea GI Denies abdominal pain, Denies change in stool character, Denies nausea and Denies vomiting Musc Denies deformity and Denies joint swelling Neuro Denies syncope and Denies headache(s) Physical exam (Primary Care) Vital Signs: Last Vital Signs Pulse 53 07/16/23 08:34 BP 102/64 07/16/23 08:34 Pulse Ox 97 07/16/23 08:34 Oxygen Delivery Method Room Air 07/16/23 08:34 BMI result Body Mass Index 25.9 Tobacco/Smoking Status: Tobacco use Status Tobacco use date assessed 07/16/23 07/16/23 08:36 Patient Tobacco Use Status Never used Tobacco 07/16/23 08:36 e-Cigarette/Vaping Use Never Used 07/16/23 08:36 PHQ-9: PHQ-9 Score PHQ-9: Total score 0 07/16/23 08:54 Depression Screening Interpretation: Negative Thrive Assessment: Date of Thrive Assessment Date Thrive assessed 07/16/23 07/16/23 08:36 Const General: cooperative, comfortable, no acute distress and alert Neck Neck: Yes no lymphadenopathy Thyroid: Thyroid normal Resp Effort & Inspection: normal respiratory effort Auscultation: clear to auscultation bilaterally Percussion: percussion normal Cardio Jugular venous distension: no JVD Palpation: normal PMI Rate: regular rate Rhythm: regular rhythm Heart sounds: S1 normal heart sound present and S2 normal heart sound present GI Inspection: Yes normal to inspection Palpation (GI): No hepatosplenomegaly present Skin General skin exam: no rashes or lesions noted Extrem General: Yes no clubbing, cyanosis or edema Assessment and Plan Assessment & Plan (1) Hyperlipidemia: Code(s): E78.5 - Hyperlipidemia, unspecified Plan: stable; same rx Orders: Orders Complete Blood Count Auto Diff Today D64.9 - Anemia, unspecified Comprehensive [place]. Panel Fast Today N28.9 - Disorder of kidney and ureter, unspecified Lipid Panel Today E78.5 - Hyperlipidemia, unspecified Thyroid Stimulating Hormone Today E03.9 - Hypothyroidism, unspecified Coding Level of Care Code Est Pt Level 3 (93540) Diagnoses Hyperlipidemia E78.5 Additional Codes RICHELLE-7 Assessment Billing - RICHELLE-7 Assessment Tool: RICHELLE-7 Assessment 08373 ([id number])
== END 2023-07-16 09:06 | disposition home or self-care (01) ==
PROVIDERS: PCP Internal Medicine; Visit Provider Internal Medicine
DX: E78.5 Hyperlipidemia, unspecified (principal)
CPT/HCPCS: 99213

== ENCOUNTER 2023-08-23 08:49 | Outpatient (REF) | payer MEDICARE, SELFPAY | END 2023-08-23 08:50 | disposition home or self-care (01) | LOC: HO.MAMMO 08:49 | PROVIDERS: PCP Internal Medicine; Visit Provider Internal Medicine | DX: Z12.31 Encounter for screening mammogram for malignant neoplasm of breast (principal) | CPT/HCPCS: 77063; 77067 ==

== ENCOUNTER → 2023-08-23 09:15 | Outpatient (BNV) | payer MEDICARE, SELFPAY | PROVIDERS: PCP Internal Medicine; Visit Provider Radiology Diagnostic Radiology | DX: Z12.31 Encounter for screening mammogram for malignant neoplasm of breast (principal) | CPT/HCPCS: 77063; 77067 ==

== ENCOUNTER 2024-01-30 09:17 | Outpatient (REF) | payer MEDICARE, SELFPAY ==
[2024-01-30 11:10] LABS: MANUAL DIFF FLAG NO
[2024-01-30 11:22] LABS: Basophils Percent Auto 0.8 % (0-2); Eosinophils Absolute Auto 0.1 X10*3/uL (0.0-0.4); Eosinophils Percent Auto 1.7 % (0-4); Hematocrit 34.8 % (37.0-47.0); Hemoglobin 11.2 g/dl (12.0-16.0); Imm Gran Abs Auto 0.01 X10*3/uL (0.00-0.03); Imm Gran Pct Auto 0.2 % (0.0-0.4); Lymphocytes Absolute Auto 1.5 X10*3/uL (1.2-4.9); Lymphocytes Percent Auto 29.4 % (20-40); Mean Corpuscular HGB Conc 32.2 g/dl (31.0-35.0); Mean Corpuscular Hemoglobin 28.8 pg (27.0-33.0); Mean Corpuscular Volume 89.5 fL (80.0-98.0); Mean Platelet Volume 11.1 fL (9.4-12.3); Monocytes Absolute Auto 0.4 X10*3/uL (0.1-1.2); Monocytes Percent Auto 6.9 % (2-11); Neutrophils Absolute Auto 3.2 x10*3/uL (2.0-8.3); Platelet Count 220 X10*3/uL (160-400); Red Blood Count 3.89 X10*6/uL (4.20-5.50); Red Cell Distribution Width 13.5 % (11.0-16.0); White Blood Count 5.2 X10*3/uL (4.8-10.8)
[2024-01-30 11:36] LABS: Alanine Aminotransferase 29 U/L (0-31); Albumin Level 3.8 g/dL (3.5-5.0); Alkaline Phosphatase 87 U/L (39-117); Anion Gap 10 (12-20); Aspartate Amino Transferase 23 U/L (5-31); Bilirubin Total 0.5 mg/dL (0.0-1.0); Blood Urea Nitrogen 17 mg/dL (9-16); Calcium 8.4 mg/dL (8.4-10.2); Carbon Dioxide 25 mmol/L (22-29); Chloride 112 mmol/L (96-108); Cholesterol 129 mg/dL (<200); Estimated Glomerular Filt Rate > 60; Glucose Fasting 86 mg/dL (60-99); HDL Cholesterol 31 mg/dL (>40); LDL Cholesterol Calculated 82 mg/dL (<100); Potassium 3.8 mmol/L (3.3-5.1); Sodium 143 mmol/L (135-145); Total Protein 6.1 g/dL (6.5-8.0); Triglycerides 83 mg/dL (<150)
[2024-01-30 11:56] LABS: Thyroid Stimulating Hormone 3.06 uIU/mL (0.32-4.0)
== END 2024-01-30 09:18 | disposition home or self-care (01) ==
LOC: HO.WFDLDS 09:17
PROVIDERS: Visit Provider Internal Medicine
DX: D64.9 Anemia, unspecified (principal); N28.9 Disorder of kidney and ureter, unspecified; E03.9 Hypothyroidism, unspecified; E78.5 Hyperlipidemia, unspecified
CPT/HCPCS: 36415; 80053; 80061; 84443; 85025

== ENCOUNTER 2024-02-05 09:36 | Outpatient (AMB) | payer MEDICARE, SELFPAY ==
[2024-02-05 09:38] VITALS: BP 104/64; PULSE 55; O2SAT 95; BMI 24.1
--- NOTE | 2024-02-05 09:38 | A.OFFPC_ITS ---
Vital Signs 02/05/24 09:38 Height 5 ft 2.5 in Weight 134 lb BMI 24.1 BP 104/64 Blood Pressure Location Lt brachial Position Sitting Pulse 55 Pulse Source Pulse Oximeter Pulse Oximetry (%) 95 Oxygen Delivery Method Room Air Intake Visit Reasons: Annual Physical Manager Printing Required: No Accompanied by: Self / Same As Patient Allergies No Known Allergies [No Known Allergies*] Allergy (Verified 02/05/24 09:38) Medication List - Last Reconciled 02/05/24 by Jose Rafael Reddy MD atorvastatin 20 mg PO DAILY cyanocobalamin (vitamin B-12) 1,000 mcg PO DAILY estradiol 0.01%(0.1mg/gram) vaginally 3 times a week; pea sized amount to urethra 3 times a week 30 days ferrous sulfate (Feosol) 325 mg PO DAILY mv,Ca,min-folic acid-vit K1 400-20 mcg (One-A-Day Women's 50 Plus) 1 tab PO DAILY Tobacco use date assessed: 07/16/23 Fall risk assessment: No Falls in past year Last assessed Fall Risk: 02/05/24 Dental Screening Dental Screen Date: 07/16/23 HPI Annual Physical HPI Details hyperlipidemia on rx; doing well PFSH Medical History Hyperlipidemia Surgical History History of rectal surgery History of bladder surgery History of colonoscopy Family History Father Lung cancer Mother Dementia Social History Housing: House Alcohol intake: current Alcohol intake frequency: holidays/special occasions only Patient Tobacco Use Status: Never used Tobacco Tobacco use type: Cigarette e-Cigarette/Vaping Use: Never Used Second Hand Smoke Exposure: No service: No Current occupational status: retired Current occupational exposures/hazards: No Cognitive needs: No Hearing needs: Yes Vision needs: Yes Questionnaire PHQ-9 Over the last 2 weeks, how often have you been bothered by any of the following problems? 1. Little interest or pleasure in doing things: not at all 2. Feeling down, depressed, or hopeless: not at all 3. Trouble falling or staying asleep, or sleeping too much: not at all 4. Feeling tired or having little energy: not at all 5. Poor appetite or overeating: not at all 6. Feeling bad about yourself - or that you are a failure or have let yourself or your family down: not at all 7. Trouble concentrating on things, such as reading the newspaper or watching television: not at all 8. Moving or speaking so slowly that other people could have noticed. Or the opposite - being so fidgety or restless that you have been moving around a lot more than usual: not at all 9. Thoughts that you would be better off or of hurting yourself in some way: not at all Total score: 0 Depression Screening Interpretation: Negative Depression Screening Done: Yes 05319 - PHQ-9 Billing: Yes Source: Developed by Drs. Dagoberto Garcia, Lexus Barros, Joaquin Eugene and colleagues, with an educational gavin from [employer]. Thrive Questionnaire Date Thrive assessed: 07/16/23 I am a: Patient What is your living situation today?: I have a steady place to live Within the past 12 months, did the food you bought not last and you didn't have the money to get more?: Never true Within the past 12 months, did you worry whether your food would run out before you got money to buy more?: Never true Do you have trouble paying for medicines?: No Do you have trouble getting transportation to medical appointments?: No Do you have trouble paying your heating and electricity bill?: No Do you have trouble taking care of your child, family member or friend?: No Do you have trouble with day-to-day activities such as bathing, preparing meals, shopping, managing finances, etc.?: No Are you currently unemployed and looking for a job?: No Are you interested in more education?: No Please select the resources that you would like help with: None Currently or been in a relationship where the following occur: No concerns reported THRIVE Score: 0 AUDIT C Alcohol Use Questionnaire (AUDIT-C) 1. How often do you have a drink containing alcohol?: Monthly or less 2. How many drinks containing alcohol do you have on a typical day when you are drinking?: 1 or 2 3. How often do you have six or more drinks on one occasion?: Never Total Score: 1 RICHELLE-7 AMB Questionnaire RICHELLE-7 Date RICHELLE - 7 assessed: 07/16/23 Feeling nervous, anxious, or on edge: 0 = Not at all Not being able to stop or control worryin = Not at all Worrying too much about different things: 0 = Not at all Trouble relaxin = Not at all Being so restless that it is hard to sit still: 0 = Not at all Becoming easily annoyed or irritable: 0 = Not at all Feeling afraid as if something awful might happen: 0 = Not at all Total RICHELLE-7 score (0-4 normal; 5-9 mild; 10-14 moderate; 15-21 severe): 0 Source: Developed by Drs. Dagoberto Garcia, Lexus Barros, Joaquin Eugene and colleagues, with an educational gavin from [employer]. RICHELLE-7 Assessment Billing RICHELLE-7 Assessment Tool: RICHELLE-7 Assessment 88073 Review of Systems Const Denies chills, Denies fatigue, Denies headache(s) and Denies weight loss Eyes Denies change in vision, Denies diplopia and Denies eye pain ENT Denies vertigo, Denies dizziness, Denies headache(s) and Denies nasal discharge Card Denies chest pain, Denies rapid heart rate and Denies dyspnea on exertion Resp Denies chest congestion, Denies cough, Denies pain with cough and Denies dyspnea on exertion GI Denies abdominal pain, Denies hematochezia and Denies change in bowel habits Musc Denies myalgias, Denies arthralgias and Denies joint swelling Skin/Breast Denies lesions and Denies unusual bruising Neuro Denies vertigo, Denies dizziness, Denies headache(s) and Denies focal weakness Endo Denies fatigue Physical exam (Primary Care) Vital Signs: Last Vital Signs Pulse 55 02/05/24 09:38 BP 104/64 02/05/24 09:38 Pulse Ox 95 02/05/24 09:38 Oxygen Delivery Method Room Air 02/05/24 09:38 BMI result Body Mass Index 24.1 Tobacco/Smoking Status: Tobacco use Status Tobacco use date assessed 07/16/23 02/05/24 09:40 Patient Tobacco Use Status Never used Tobacco 02/05/24 09:40 Tobacco use type Cigarette 02/05/24 09:40 e-Cigarette/Vaping Use Never Used 02/05/24 09:40 PHQ-9: PHQ-9 Score PHQ-9: Total score 0 02/05/24 09:48 Depression Screening Interpretation: Negative Thrive Assessment: Date of Thrive Assessment Date Thrive assessed 07/16/23 02/05/24 09:40 Currently or been in a relationship where the following occur: No concerns reported Const General: cooperative, healthy appearing and no acute distress Orientation/consciousness: oriented to person, oriented to place and oriented to time HENMT Head: Yes normal to inspection, Yes normocephalic and Yes atraumatic Mouth: Normal oral and palatal mucosa present and tongue normal Throat: Yes posterior oropharynx normal and Yes uvula midline Eyes General: appearance normal, both eyes and all related structures Neck Neck: Yes normal visual inspection, Yes full ROM and Yes no lymphadenopathy Thyroid: Thyroid normal Carotids: normal carotid upstroke Chest Chest palpation & inspection: normal inspection of the chest Resp Effort & Inspection: normal respiratory effort and able to speak in complete sentences Auscultation: clear to auscultation bilaterally Cardio Jugular venous distension: no JVD Palpation: normal PMI Rate: regular rate Rhythm: regular rhythm Heart sounds: S1 normal heart sound present and S2 normal heart sound present GI Inspection: Yes normal to inspection Palpation (GI): Soft to palpation and No hepatosplenomegaly present Auscultation: normal bowel sounds General: Yes no CVA tenderness Back/Spine/Pelvis Back: no CVA tenderness Skin General skin exam: no rashes or lesions noted Neuro General: oriented to person, oriented to place and oriented to time Extrem General: Yes normal to inspection and Yes full ROM Coding Level of Care Code Est Pt Prev Care >65y(67679) Diagnoses Physical exam Z00.00 Hyperlipidemia E78.5 Additional Codes RICHELLE-7 Assessment Billing - RICHELLE-7 Assessment Tool: RICHELLE-7 Assessment 32396 ([id number]) Assessment & Plan Assessment & Plan (1) Physical exam: Code(s): Z00.00 - Encounter for general adult medical examination without abnormal findings Category: Medical Plan: stable; same rx (2) Hyperlipidemia: Code(s): E78.5 - Hyperlipidemia, unspecified Category: Medical Plan: stable; same rx
== END 2024-02-05 10:07 | disposition home or self-care (01) ==
PROVIDERS: PCP Internal Medicine; Visit Provider Internal Medicine
DX: Z00.00 Encounter for general adult medical examination without abnormal findings (principal); E78.5 Hyperlipidemia, unspecified

== ENCOUNTER → 2024-02-05 09:36 | Outpatient (BNVA) | payer MEDICARE, SELFPAY | PROVIDERS: PCP Internal Medicine; Visit Provider Internal Medicine | DX: Z00.00 Encounter for general adult medical examination without abnormal findings (principal); E78.5 Hyperlipidemia, unspecified | CPT/HCPCS: 96127; 99397 ==

== ENCOUNTER 2024-08-28 08:53 | Outpatient (REF) | payer MEDICARE, SELFPAY ==
--- OUTSIDE RECORDS SUMMARY | 2024-08-28 09:27 | XMS_ITS | Clinical Summary ---
Author Organization [employer] Address [address] [facility] 7 [place] [address] Care Team Providers Care Advertising Supervisor Name Role Phone Unavailable Primary Care Provider Unavailabl e Encounters Date Type Department Care Team Description 08/12/2024 Telephone [facility] [address] [place], [place] [phone] Davon Santillan MD from Last 3 Months Social History Tobacco Use Types Packs/Day Years Used Date Smoking Tobacco: Never Assessed Comments Unknown Sex and Gender Information Value Date Recorded Sex Assigned at Female 08/12/2024 1:05 PM EDT Legal Sex Female 12:58 PM EDT Gender Identity Female 08/12/2024 1:05 PM EDT Sexual Orientation Not on file Plan of Treatment Health Maintenance Due Date Last Done Comments CT Colonography 1949 Colonoscopy 1949 Colorectal Cancer Screening 1949 Depression Screening 1949 FIT DNA/Cologuard 1949 FIT 1949 FOBT 1949 SDOH Screening 1949 Sigmoidoscopy 1949 Alcohol/Substance Use Screening 1961 Tobacco Screening 1961 Hepatitis C Screening 1967 DTaP/Tdap/Td Vaccines (1 - Tdap) 1968 Pneumococcal Vaccine: 50+ Ye ars (1 of 1 - PCV) 1999 Zoster Vaccines (1 of 2) 1999 COVID-19 Vaccine ( - 2023-2 5 season) 2024 Influenza Vaccine (#1) 2024 RSV Patients and Pa tients Aged 60 years or older (1 - 1-dose 75+ series) 2024 HIB Vaccines Aged Out No longer eligi ble based on patient's age to complete this topic HPV Vaccines Aged Out No longer eligi ble based on patient's age to complete this topic Hepatitis A Vaccines Aged Out No long er eligible based on patient's age to complete this topic Hepatitis B Vaccines Aged Out No long er eligible based on patient's age to complete this topic IPV Vaccines Aged Out No longer eligi ble based on patient's age to complete this topic Meningococcal Vaccine Aged Out No diann david eligible based on patient's age to complete this topic RSV under 20 months Aged Out No longe r eligible based on patient's age to complete this topic Rotavirus Vaccines Aged Out No longer eligible based on patient's age to complete this topic Insurance [facility]
== END 2024-08-28 08:54 | disposition home or self-care (01) ==
LOC: HO.MAMMO 08:53
PROVIDERS: Absent Provider Emergency Medicine; PCP Emergency Medicine; Visit Provider Internal Medicine
DX: Z12.31 Encounter for screening mammogram for malignant neoplasm of breast (principal)
CPT/HCPCS: 77063; 77067

== ENCOUNTER → 2024-08-28 09:15 | Outpatient (BNV) | payer MEDICARE, SELFPAY | PROVIDERS: Absent Provider Emergency Medicine; PCP Emergency Medicine; Visit Provider Internal Medicine | DX: Z12.31 Encounter for screening mammogram for malignant neoplasm of breast (principal) | CPT/HCPCS: 77063; 77067 ==

== ENCOUNTER 2024-10-15 15:29 | Outpatient (REF) | payer MEDICARE, SELFPAY ==
[2024-10-15 15:45] LABS: MANUAL DIFF FLAG NO
[2024-10-15 16:08] LABS: Basophils Absolute Auto 0.1 X10*3/uL (0.0-0.2); Basophils Percent Auto 1.1 % (0-2); Eosinophils Absolute Auto 0.1 X10*3/uL (0.0-0.4); Eosinophils Percent Auto 1.5 % (0-4); Hematocrit 35.1 % (37.0-47.0); Hemoglobin 11.4 g/dl (12.0-16.0); Imm Gran Abs Auto 0.02 X10*3/uL (0.00-0.03); Imm Gran Pct Auto 0.4 % (0.0-0.4); Lymphocytes Absolute Auto 1.7 X10*3/uL (1.2-4.9); Lymphocytes Percent Auto 32.6 % (20-40); Mean Corpuscular HGB Conc 32.5 g/dl (31.0-35.0); Mean Corpuscular Hemoglobin 28.8 pg (27.0-33.0); Mean Corpuscular Volume 88.6 fL (80.0-98.0); Mean Platelet Volume 10.8 fL (9.4-12.3); Monocytes Absolute Auto 0.4 X10*3/uL (0.1-1.2); Monocytes Percent Auto 7.2 % (2-11); Neutrophils Percent Auto 57.2 % (45-73); Platelet Count 227 X10*3/uL (160-400); Red Blood Count 3.96 X10*6/uL (4.20-5.50); Red Cell Distribution Width 14.1 % (11.0-16.0); White Blood Count 5.3 X10*3/uL (4.8-10.8)
[2024-10-15 16:39] LABS: Alanine Aminotransferase 49 U/L (0-31); Albumin Level 4.5 g/dL (3.5-5.0); Alkaline Phosphatase 105 U/L (39-117); Anion Gap 10 (12-20); Aspartate Amino Transferase 34 U/L (5-31); Bilirubin Total 0.3 mg/dL (0.0-1.0); Blood Urea Nitrogen 11 mg/dL (9-16); Calcium 8.2 mg/dL (8.4-10.2); Carbon Dioxide 23 mmol/L (22-29); Chloride 111 mmol/L (96-108); Cholesterol 117 mg/dL (<200); Estimated Glomerular Filt Rate > 60; Glucose Random 86 mg/dL (60-115); HDL Cholesterol 33 mg/dL (>40); LDL Cholesterol Calculated 63 mg/dL (<100); Potassium 4.1 mmol/L (3.3-5.1); Sodium 140 mmol/L (135-145); Total Protein 6.4 g/dL (6.5-8.0); Triglycerides 106 mg/dL (<150)
[2024-10-15 16:55] LABS: TSH reflex Free T4 1.75 uIU/mL (0.32-4.0); Vitamin D 25-OH Total 33.6 ng/mL (>30)
--- OUTSIDE RECORDS SUMMARY | 2024-10-15 17:51 | XMS_ITS | Encounter Summary ---
Author Organization [employer] Address [address] [facility] [address] [place] [address] Care Team Providers Care Glaze Maker Name Role Phone Dinh Mclean CNP Primary Care Provider [phone] Encounter Details Date Type Department Care Team (Latest Contact Info) Description 10/15/2024 Travel Social History Tobacco Use Types Packs/Day Years Used Date Smoking Tobacco: Never Passive Smoke Exposure: Never Smokeless Tobacco: Never Depression Answer Date Recorded Patient Health Questionnaire-9 Score 1 10/15/2024 Patient Health Questionnaire-9 Score 1 10/15/2024 Last PHQ-9: Questionnaire Data Not on file 0 10/15/2024 Housing Stability Answer Date Recorded What is your housing situation today? I have janessa ramirez 10/15/[address] you li ve. Do you have problems with any of the following? None of the above 10/15/2024 Food Insecurity Answer Date Recorded Within the past 12 months, y ou worried that your food would run out before you got money to buy more: Never True 10/15/2024 Within the past 12 months,th e food you bought just didn't last and you didn't have enough money to get more: Never True 03/2025 Transportation Answer Date Recorded In the past 12 months, has l ack of transportation kept you from medical appts, meetings, work or from getting things needed for daily living? No 10/15/2024 Utilities Answer Date Recorded In the past 12 months, has t he electric, gas, oil or water company threatened to shut off services in your home? No 10/15/2024 Depression Answer Date Recorded Patient Health Questionnaire-2 Score 0 10/15/2024 Internet Access Answer Date Recorded Internet Access Q1 Yes 10/15/2024 Internet Access Q2 Not on file 10/15/2024 Comments Unknown Sex and Gender Information Value Date Recorded Sex Assigned at Female 08/12/2024 1:05 PM EDT Legal Sex Female 12:58 PM EDT Gender Identity Female 08/12/2024 1:05 PM EDT Sexual Orientation Straight 10/09/2024 10 :33 AM EDT documented as of this encounter Functional Status * Over the past 2 weeks, how often have you been bothered by any of the following problems? Question Answer Date of Assessment Author Patient Health Questionnaire -2 Score 0 10/15/2024 3:34 PM EDT Arin Jones MA * Little interest or pleasure in doing things Answer Date of Assessment Author Not at all 10/15/2024 3:34 PM EDT Arin Zurita MA * Feeling down, depressed, or hopeless Answer Date of Assessment Author Not at all 10/15/2024 3:34 PM EDT Arin Zurita MA * Trouble falling or staying asleep, or sleeping too much Answer Date of Assessment Author Not at all 10/15/2024 3:34 PM EDT Arin Zurita MA * Feeling tired or having little energy Answer Date of Assessment Author Several days 10/15/2024 3:34 PM EDT Arin Zurita MA * Poor appetite or overeating Answer Date of Assessment Author Not at all 10/15/2024 3:34 PM EDT Arin Zurita MA * Feeling bad about yourself - or that you are a failure or have let yourself or your family down Answer Date of Assessment Author Not at all 10/15/2024 3:34 PM EDT Arin Zurita MA * Trouble concentrating on things, such as reading the newspaper or watching television Answer Date of Assessment Author Not at all 10/15/2024 3:34 PM EDT Arin Zurita MA * Moving or speaking so slowly that other people could have noticed? Or the opposite - being so fidgety or restless that you have been moving around a lot more than usual. Answer Date of Assessment Author Not at all 10/15/2024 3:34 PM EDT Arin Zurita MA * Thoughts that you would be better off or hurting yourself in some way Answer Date of Assessment Author Not at all 10/15/2024 3:34 PM EDT Arin Zurita MA * Patient Health Questionnaire-9 Score Answer Date of Assessment Author 1 10/15/2024 3:34 PM EDT Arin Zurita MA * How difficult have these problems made it for you to do your work, take care of things at home, or get along with other people? Answer Date of Assessment Author Not difficult at all 10/15/2024 3:34 PM EDT Arin Newsome MA * Over the last 2 weeks, how often have you been bothered by any of the following problems? Question Answer Date of Assessment Author Feeling nervous, anxious, or on edge 0 10/15/2024 3:34 PM EDT Arin Jones MA Not being able to stop or control worrying 0 10/15/2024 3:34 PM EDT Arin Jones MA Worrying too much about different things 0 10/15/2024 3:34 PM EDT Arin Jones MA Trouble relaxing 0 10/15/2024 3:34 PM EDT Arin Mike MA Being so restless that it is hard to sit still 1 10/15/2024 3:34 PM EDT Arin Jones MA Becoming easily annoyed or irritable 0 10/15/2024 3:34 PM EDT Arin Jones MA Feeling afraid as if somethi ng awful might happen 0 10/15/2024 3:34 PM EDT Arin Jones MA RICHELLE-7 Total Score 1 10/15/2024 3:34 PM EDT Arin Jones MA documented as of this encounter Plan of Treatment Not on file documented as of this encounter Visit Diagnoses Not on filedocumented in this encounter Additional Health Concerns Assessment Noted Time PHQ-9 Depression Total Score: 1 10/16/19 25 3:34 PM EDT documented as of this encounter Care Teams Glaze Maker Relationship Specialty Start Date End Date Dinh Mclean CNP [address] [place] [phone] PCP - General Family Medicine 10/15/24 documented as of this encounter
[2024-10-16 08:06] LABS: ~HepC Num1 0.19 S/CO (0.00-0.79); ~Hepatitis C Antibody Nonreactive (Nonreactive)
== END 2024-10-15 15:30 | disposition home or self-care (01) ==
LOC: HO.LAB 15:29
DX: Z00.00 Encounter for general adult medical examination without abnormal findings (principal)
CPT/HCPCS: 36415; 80053; 80061; 82306; 84443; 85025; 86803

== ENCOUNTER 2024-10-20 10:29 | Outpatient (REF) | payer MEDICARE, SELFPAY ==
--- OUTSIDE RECORDS SUMMARY | 2024-10-20 11:44 | XMS_ITS | Encounter Summary ---
Author Organization [employer] Address [address] [facility] 7t [place] [address] Care Team Providers Care Direct Chill Casting Operator Name Role Phone Dinh Mclean CNP Primary Care Provider [phone] Encounter Details Date Type Department Care Team [...] documented as of this encounter Care Teams Direct Chill Casting Operator Relationship Specialty Start Date End Date Dinh Mclean CNP [address] [place] [phone] PCP - General Family Medicine 10/15/24 documented as of this encounter
[2024-10-20 14:28] LABS: Iron 49 mcg/dL (30-160); Percent Iron Saturation 18 % (15-50); Total Iron Binding Capacity 274 mcg/dL (228-428); Unsaturated Iron Binding 225 ug/dL
[2024-10-20 14:47] LABS: Ferritin 16 ng/mL (10-250)
[2024-10-21 03:49] LABS: HBsAGNum1 0.42 S/CO (0.00-0.99); Hepatitis B Surface Antigen Negative (Negative)
== END 2024-10-20 10:30 | disposition home or self-care (01) ==
LOC: HO.WFDLDS 10:29
DX: R74.01 Elevation of levels of liver transaminase levels (principal)
CPT/HCPCS: 36415; 82728; 83540; 87340

== ENCOUNTER 2024-12-11 08:12 | Outpatient (REF) | payer MEDICARE, SELFPAY ==
--- NOTE | ~2024-12-11 | MM_ITS ---
EXAMINATION: DXA BONE DENSITY AXIAL HISTORY: routine DEXA scan TECHNIQUE: [employer]ant Dual energy absorptiometry (DEXA) of the lumbar spine, total left hip, and femoral neck was performed. COMPARISON: There are no prior studies for comparison. FINDINGS: The bone mineral density of the lumbar spine is 0.641 g/cm2, corresponding to a T-score of -4.5, and a Z-score of -2.4. This is indicative of osteoporosis. The bone mineral density of the left total hip is 0.739 g/cm2, corresponding to a T-score of -2.1, and a Z-score of -0.1. This is indicative of osteopenia. The bone mineral density of the left femoral neck is 0.702 g/cm2, corresponding to a T-score of -2.4, and a Z-score of -0.2. This is indicative of osteopenia. MM/XR DEXA axial skeleton IMPRESSION: Based on bone mineral density, and according to World Health Organization (WHO) criteria, the diagnosis is consistent with osteoporosis. Statistically, 68% of repeat scans fall within 1 SD (+/- 0.010 g/cm2 for AP spine L1-L4) and 1 SD (+/- 0.012 g/cm2 for femur total) [employer] is a trademark of the [employer] [place] [facility] [employer], a World Health Organization (WHO) Collaborating Center. Electronically signed by: Dagoberto Hutchins MD 12/11/2024 08:44 AM EDT
--- OUTSIDE RECORDS SUMMARY | 2024-12-11 08:16 | XMS_ITS | Clinical Summary ---
Author Organization [employer] Address [address] [place] [address] 7t [place] [address] Care Team Providers Care Service Order Dispatcher Name Role Phone Dinh Mclean CNP Primary Care Provider [phone] [phone] Allergies No known active allergies Medications atorvastatin (Lipitor) 20 MG tablet Take 1 tablet by mouth Once per day. 5 Active Diclofenac Sodium 1 % gelIndications:Join t pain in fingers of both hands Apply small amount to each affected area up to 4 times daily. 120 g 5 Active atorvastatin (Lipitor) 20 MG tabletIndications:H yperlipidemia, unspecified hyperlipidemia type Take 1 tablet (20 mg) by mouth Once per day. 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 10/13/2021 History of melanoma in situ 09/22/2021 Surgical follow-up care 04/06/2021 Basal cell carcinoma (BCC) of skin of nose 03/24 Benign neoplasm of skin of left lower extremity 03/10/2021 Benign neoplasm of skin of right lower extremity 08/31/2020 Inflamed seborrheic keratosis 08/31/2020 Disorder of pigmentation 08/31/2020 Disseminated superficial actinic porokeratosis ( DSAP) 03/02/2020 Erythema intertrigo 03/02/2020 Other seborrheic keratosis 03/02/2020 Other seborrheic dermatitis 03/02/2020 Hearing loss 08/26/2019 Personal history of other malignant neoplasm of skin 08/26/2019 Actinic keratosis 08/26/2019 Encounter for surgical after care following surgery on the skin and subcutaneous tissue 03/19/2019 Basal cell carcinoma of skin of other parts of f bill 03/12/2019 Personal history of malignant melanoma of skin 1 Neoplasm of uncertain behavior of skin 9 Other melanin hyperpigmentation 02/12/2019 Encounters Date Type Department Care Team Description 10/24/2024 Refill [facility] [address] [place] [phone] Dinh Mclean CNP Hyperlipidemia, unspecified hyperlipidemia type 10/24/2024 Telephone [facility] [address] [place] [phone] Dinh Mclean CNP Referral 10/17/2024 Results Follow-Up [facility] [address] [place] [address] Dinh Mclean CNP CBC auto differential, Lipid Panel, Standard, Comprehensive Metabolic Panel, Additional followed-up results: 3 10/17/2024 Orders Only [facility] [address] [place] [address] Dinh Mclean CNP Transaminitis (Primary Dx) 10/15/2024 2:45 PM EDT Office Visit [facility] [address] [place] [phone] Dinh Mclean CNP Encounter for medical examination to establish care (Primary Dx); Hyperlipidemia, unspecified hyperlipidemia type; Post-menopausal; Joint pain in fingers of both hands 10/15/2024 Travel 10/08/2024 Travel 10/08/2024 Patient Outreach [facility] [address] [place] [address] Dinh Mclean CNP Pre-visit Planning ([facility] unable to reach [facility]) from Last 3 Months Immunizations Immunization Administration Dates Next Due Influenza High-dose Quadrivalent Preservative Fr ee 01/16/2022 Influenza Quadrivalent Adjuvanted 01/30/2023,08/2020 Influenza, High Dose Seasonal, Preservative Free 01/02/2024 Pneumococcal Conjugate PCV 20 01/02/2024 RSV Adjuvant 01/30/2023 Tdap 01/02/2024 Family History Medical History Relation Name Comments Lung cancer Father Relation Name Status Comments Father Social History Tobacco Use Types Packs/Day Years Used Date Smoking Tobacco: Never Passive Smoke Exposure: Never Smokeless Tobacco: Never Tobacco Cessation:Counseling Given: Not Answered Depression Answer Date Recorded Patient Health Questionnaire-9 [...] Orientation Straight 10/09/2024 10 :33 AM EDT Last Filed Vital Signs Vital Sign Reading Time Taken Comments Blood Pressure 118/64 10/15/2024 2:50 PM EDT Pulse 58 10/15/2024 2:50 PM EDT Temperature 36.6 C (97.8 F) 10/15/2024 2:50 PM EDT Respiratory Rate 20 10/15/2024 2:50 PM EDT Oxygen Saturation 98% 10/15/2024 2:50 PM EDT Inhaled Oxygen Concentration - - Weight 59.6 kg (131 lb 6 oz) 10/15/2024 2:50 PM EDT Height 156.4 cm (5' 1.57 ) 10/15/2024 2:50 PM ED T Body Mass Index 24.37 10/15/2024 2:50 PM EDT Plan of Treatment Health Maintenance Due Date Last Done Comments CT Colonography 1949 Colonoscopy 1949 Colorectal Cancer Screening 1949 FIT DNA/Cologuard 1949 FIT 1949 FOBT 1949 Sigmoidoscopy 1949 Derm Melanoma Skin Check 1949 Zoster Vaccines (1 of 2) 1999 COVID-19 Vaccine ( season) 2024 01/30/2023, 08/24/2022, 01/16/2022, Additional history exists Influenza Vaccine (#1) 2025 , 01/30/2023, 01/16/2022, Additional history exists Alcohol/Substance Use Screening 10/15/2025 10/15/2024 Depression Screening 10/15/2025 10/15/2024, 10/16/19 SDOH Screening 10/15/2025 10/15/2024 Tobacco Screening 10/15/2025 10/15/2024 DTaP/Tdap/Td Vaccines (2 - Td or Tdap) 01/01/2034 01/02/2024 RSV Patients and Patients Aged 60 years or older Completed 01/30/2023 Pneumococcal Vaccine: 50+ Years Completed 01/02/2024 Hepatitis C Screening Completed 10/15/2024 HIB Vaccines Aged Out No longer eligi [...] patient's age to complete this topic Meningococcal B Vaccine Aged Out No l onger eligible based on patient's age to complete this topic Meningococcal Vaccine Aged Out No diann david eligible based on patient's age to complete this topic RSV under 20 months Aged Out No longe r eligible based on patient's age to complete this topic Rotavirus Vaccines Aged Out No longer eligible based on patient's age to complete this topic Procedures Procedure Name Priority Date/Time Associated Diagnosis Comments HEPATITIS B SURFACE ANTIGEN, EIA Routine 10/20/2024 10:31 AM EDT Transaminitis FERRITIN Routine 10/20/2024 10:31 AM EDT Transaminitis IRON AND TOTAL IRON BINDING CAPACITY Routine 10/20/2024 10:31 AM EDT Transaminitis VITAMIN D,25-OH,TOTAL,IA Routine 10/15/2024 3:42 PM EDT Encounter for medical examination to establish care HEPATITIS C AB W/REFL TO HCV RNA, QN, PCR Routine 10/15/2024 3:42 PM EDT Encounter for medical examination to establish care TSH W/REFLEX TO FT4 Routine 10/15/2024 3 :42 PM EDT Encounter for medical examination to establish care COMPREHENSIVE METABOLIC PANEL Routine 10/15/2024 3:42 PM EDT Encounter for medical examination to establish care LIPID PANEL, STANDARD Routine 10/15/2024 3:42 PM EDT Encounter for medical examination to establish care CBC WITH AUTO DIFFERENTIAL Routine 10/15/2024 3:42 PM EDT Encounter for medical examination to establish care from Last 3 Months Results * Iron And Total Iron Binding Capacity (10/20/2024 10:31 AM EDT) Iron 49 30 - 160 mcg/dL [facility] Total Iron Binding Capacity 274 228 - 428 mcg/dL [facility] Percent Iron Saturation 18 15 - 50 % [facility] Unsaturated Iron Binding 225 ug/dL [facility] Blood Venous blood specimen / Unknown 10/20/2024 10:31 AM EDT 10/20/2024 1:58 PM EDT [facility] LAB BLOOD ORDERABLES Leeanna l Result Performing Organization Address City/[facility]/ZIP Co de Phone Number [facility] [address] [place] [phone] * Hepatitis B surface antigen, EIA (10/20/2024 10:31 AM EDT) Pathologist [facility] Hepatitis B Surface Ag Negative Negative [facility] Blood Venous blood specimen / Unknown 10/20/2024 10:31 AM EDT 10/20/2024 1:58 PM EDT [facility] LAB BLOOD ORDERABLES Leeanna l Result Performing Organization Address [facility]/[place] Co de Phone Number [facility] [address] [place] [phone] * Ferritin (10/20/2024 10:31 AM EDT) Pathologist [facility] Ferritin 16 10 - 250 ng/mL [facility] Blood Venous blood specimen / Unknown 10/20/2024 10:31 AM EDT 10/20/2024 1:58 PM EDT [facility] LAB BLOOD ORDERABLES Leeanna l Result Performing Organization Address [facility]/[place] Co de Phone Number [facility] [address] [place] [phone] * Vitamin D, 25-Hydroxy, Total, Immunoassay (10/15/2024 3:42 PM EDT) Pathologist [facility] Vitamin D 25-OH Total 33.6 >30 ng/mL [facility] Comment: Health Based Reference Values*< 20 ng/mL [id number] ng/mL Insufficient> 30 ng/mL Sufficient*Garcia RAND. N Engl J Med. 2007;357:266-280There is no well-established upper level of normal vitamin Dlevels. Some laboratories use 50 ng/mL as an upper limit ofnormal. However, toxicity is patient-dependent and may occurat any level. Careful correlation with the patient'spresentation is necessary and, if there is concern forvitamin D toxicity, treatment should be consideredirrespective of the serum level.Care must be taken in interpreting Vitamin D results fromdifferent laboratories and methodologies. Published datademonstrated that results from patients undergoinghemodialysis may show a negative bias when tested withvarious automated 25-OH vitamin D assays when compared toLC-MS/MS.When testing samples from patients whose predominant form ofVitamin D is Vitamin D2, such as patients receiving VitaminD2 supplementation, results that are subtherapeutic shouldbe confirmed with another method such as LC-MS/MS. Blood Venous blood specimen / Unknown 10/15/2024 3:42 PM EDT 10/15/2024 3:42 PM EDT [facility] LAB BLOOD ORDERABLES Leeanna l Result Performing Organization Address [facility]/ZIP Co de Phone Number [facility] [address] [place] [phone] * TSH W/Reflex to FT4 (10/15/2024 3:42 PM EDT) TSH reflex Free T4 1.75 0.32 - 4.0 uIU/mL [facility] Blood Venous blood specimen / Unknown 10/15/2024 3:42 PM EDT 10/15/2024 3:42 PM EDT [facility] LAB BLOOD ORDERABLES Leeanna l Result Performing Organization Address City/[facility]/ZIP Co de Phone Number [facility] [address] [place] [phone] * (ABNORMAL) CBC auto differential (10/15/2024 3:42 PM EDT) White Blood Count 5.3 4.8 - 10.8 X10*3/uL [facility] Red Blood Count 3.96(L) 4.20 - 5.50 X10*6/uL [facility] Hemoglobin 11.4(L) 12.0 - 16.0 g/dl [facility] Hematocrit 35.1(L) 37.0 - 47.0 % [facility] Mean Corpuscular Volume 88.6 80.0 - 98.0 fL [facility] Mean Corpuscular Hemoglobin 28.8 27.0 - 33.0 pg [facility] Mean Corpuscular HGB Conc 32.5 31.0 - 35.0 g/dl [facility] Red Cell Distribution Width 14.1 11.0 - 16.0 % [facility] Platelet Count 227 160 - 400 X10*3/uL [facility] Mean Platelet Volume 10.8 9.4 - 12.3 fL [facility] Neutrophils Percent Auto 57.2 45 - 73 % [facility] Imm Gran Pct Auto 0.4 0.0 - 0.4 % [facility] Lymphocytes Percent Auto 32.6 20 - 40 % [facility] Monocytes Percent Auto 7.2 2 - 11 % [facility] Eosinophils Percent Auto 1.5 0 - 4 % [facility] Basophils Percent Auto 1.1 0 - 2 % [facility] NRBC Pct Auto 0.0 0.0 - 0.2 /100WBC [facility] Neutrophils Absolute Auto 3.0 2.0 - 8.3 x10*3/uL [facility] Imm Gran Abs Auto 0.02 0.00 - 0.03 X10*3/uL [facility] Lymphocytes Absolute Auto 1.7 1.2 - 4.9 X10*3/uL [facility] Monocytes Absolute Auto 0.4 0.1 - 1.2 X10*3/uL [facility] Eosinophils Absolute Auto 0.1 0.0 - 0.4 X10*3/uL [facility] Basophils Absolute Auto 0.1 0.0 - 0.2 X10*3/uL [facility] NRBC Abs Auto 0.000 0.0 - 0.012 X10*3/uL [facility] Blood Venous blood specimen / Unknown 10/15/2024 3:42 PM EDT 10/15/2024 3:42 PM EDT [facility] LAB BLOOD ORDERABLES Leeanna l Result Performing Organization Address [facility]/ZIP Co de Phone Number [facility] [address] [place] [phone] * Hepatitis C Antibody with Reflex to HCV, RNA, Quantitative, Real-Time PCR (10/15/2024 3:42 PM EDT) Hepatitis C Antibody Nonreactive Nonreactive [facility] Comment:Antibodies to HCV no t detected; does not exclude early acuteHCV infection. Blood Venous blood specimen / Unknown 10/15/2024 3:42 PM EDT 10/15/2024 3:42 PM EDT [facility] LAB BLOOD ORDERABLES Leeanna l Result Performing Organization Address [facility]/[place] Co de Phone Number [facility] [address] [place] [phone] * (ABNORMAL) Lipid Panel, Standard (10/15/2024 3:42 PM EDT) Triglycerides 106 <150 mg/dL [facility] Comment:Desirable Triglyceri de: less than 150 mg/dLBorderline High Triglyceride 150-199 mg/dLHigh Triglyceride: 200-499 mg/dLVery High Triglyceride: greater than or equal to 5OO mg/dL Cholesterol 117 <200 mg/dL [facility] Comment:Desirable Cholestero l: less than 200 mg/dLBorderline High Cholesterol: 200-239 mg/dLHigh Cholesterol: greater than 239 mg/dL LDL Cholesterol Calculated 63 <100 mg/dL [facility] Comment:Desirable LDL: less than 100 mg/dLNear Optimal/Above Optimal LDL: 110- 129 mg/dLBorderline High LDL: 130-159 mg/dLHigh LDL: 160-189 mg/dLVery High LDL: greater than or equal to 190 mg/dL HDL Cholesterol 33(L) >40 mg/dL [facility] Comment:Desirable HDL: great er than 40 mg/dL Note: This HDL assay may give artificially low results in patients with liver disease. Blood Venous blood specimen / Unknown 10/15/2024 3:42 PM EDT 10/15/2024 3:42 PM EDT [facility] BLOOD ORDERABLES Leeanna l Result [facility] [address] [place], [place] [phone] * (ABNORMAL) Comprehensive Metabolic Panel (10/15/2024 3:42 PM EDT) Sodium 140 135 - 145 mmol/L [facility] Potassium 4.1 3.3 - 5.1 mmol/L [facility] Chloride 111(H) 96 - 108 mmol/L [facility] Carbon Dioxide 23 22 - 29 mmol/L [facility] Anion Gap 10(L) 12 - 20 [facility] Urea Nitrogen (BUN) 11 9 - 16 mg/dL [facility] Creatinine, Serum 0.68 0.5 - 1.4 mg/dL [facility] Estimated Glomerular Filt Rate >60 [facility] Comment:Chronic Kidney Disea se: Estimated GFR < 60 mL/min/1.47b1Lmmxhw Kidney Disease: Estimated GFR < 15 mL/min/1.73m2 Glucose 86 60 - 115 mg/dL [facility] Calcium 8.2(L) 8.4 - 10.2 mg/dL [facility] Bilirubin, Total 0.3 0.0 - 1.0 mg/dL [facility] Aspartate Amino Transferase 34(H) 5 - 31 U/L [facility] Alanine Aminotransferase 49(H) 0 - 31 U/L [facility] Total Protein 6.4(L) 6.5 - 8.0 g/dL [facility] Albumin Level 4.5 3.5 - 5.0 g/dL [facility] Alkaline Phosphatase 105 39 - 117 U/L [facility] Blood Venous blood specimen / Unknown 10/15/2024 3:42 PM EDT 10/15/2024 3:42 PM EDT Dinh Mclean [facility] LAB BLOOD ORDERABLES Leeanna l Result Performing Organization Address City/State/[place] Co de Phone Number [facility] [address] [place] [phone] from Last 3 Months Insurance [facility] Care Teams Service Order Dispatcher Relationship Specialty Start Date End Date Dinh Mclean CNP [address] [place] [address] PCP - General Family Medicine 10/15/24
== END 2024-12-11 08:13 | disposition home or self-care (01) ==
LOC: HO.MAMMO 08:12
DX: Z13.820 Encounter for screening for osteoporosis (principal); Z78.0 Asymptomatic menopausal state
CPT/HCPCS: 77080

== ENCOUNTER → 2024-12-11 08:45 | Outpatient (BNV) | payer MEDICARE, SELFPAY | PROVIDERS: Visit Provider Radiology Diagnostic Radiology | DX: E28.39 Other primary ovarian failure (principal) | CPT/HCPCS: 77080 ==